=== PATIENT | male | born 2000 | race Caucasian/White ===

== ENCOUNTER 2024-07-03 06:47 | Day surgery (SDC) | payer OTHER, SELFPAY ==
[2024-06-29 12:43] VITALS: BMI 27.4
--- OUTSIDE RECORDS SUMMARY | 2024-07-02 14:42 | XMS_ITS | Clinical Summary ---
Author Organization [facility] Address [address] [place] [phone] Phone Care Team Providers Care Ski Topper Name Role Phone Unavailable Primary Care Provider Unavailabl e Allergies No known active allergies Medications No known medications Active Problems Problem Noted Date Diagnosed Date Attention-deficit hyperactiv ity disorder, predominantly hyperactive type 07/08/2009 Oppositional defiant disorder 07/08/2009 Immunizations Immunization Administration Dates Next Due DTP 1998,1998 DTaP 5 02/20/2002,07/27/1999,1998 HPV, Quadrivalent 10/04/2012,11/30/2011,09/30/19 12 Hep A, ped/adol 12/23/2015 Hep B, ped/adol 1998,1998,1998 Hib (PRP-T) 05/26/1999, 9,1998, 999 IPV 02/20/2002,1998,1998 Influenza, injectable, quadrivalent 12/23/2015 Influenza, intranasal, trivalent 10/21/2010,09/21 MMR 02/20/2002,01/22/1999 Meningococcal Conj (Menactra) MCV4P 10/09/2009 OPV 01/22/1999 Tdap 10/09/2009 Varicella 08/21/2008,01/22/1999 Family History Relation Name Status Comments Father Alive Father: Alive a nd well Half-Sister Alive Half sister (P) : ADD Mother Alive Mother: Obesity Other No family histo ry of CVA (Stroke), No family history of Heart disease, Family history of Diabetes mellitus, No family history of Migraines, Family history of Cancer, cervical, No family history of Seizure disorder, No family history of Thrombophilia Social History Tobacco Use Types Packs/Day Years Used Date Smoking Tobacco: Light Smoker Comments:Never smoker Sex and Gender Information Value Date Recorded Sex Assigned at Not on file Legal Sex Male 5:13 PM EDT Gender Identity Not on file Sexual Orientation Not on file Last Filed Vital Signs Vital Sign Reading Time Taken Comments Blood Pressure 113/72 02/27/2017 12:01 PM EST Pulse 83 07/06/2016 12:00 AM EDT Temperature 39.1 ??C (102.3 ??F) 02/27/2017 12:01 PM EST Respiratory Rate - - Oxygen Saturation - - Inhaled Oxygen Concentration - - Weight 68.3 kg (150 lb 9.6 oz) 02/27/2017 12:01 PM EST Height 178.4 cm (5' 10.25 ) 07/06/2016 12:00 AM EDT Body Mass Index 21.45 07/06/2016 12:00 AM EDT Plan of Treatment Health Maintenance Due Date Last Done Comments Hepatitis A Vaccines (2 of 2 - 2-dose series) 06/21/2016 12/23/2015 DTaP,Tdap,and Td Vaccines (7 - Td or Tdap) 10/10/2019 10/09/2009, 02/20/2002, 07/27/1999, Additional history exists Influenza Vaccines (#1) 2023 12/23/19 16, 10/21/2010, 10/09/2009 COVID-19 Vaccine ( season) 2023 Hepatitis B Vaccines Completed 1998, 1998, 1998 HIB Vaccines Completed 05/26/1999, 06/22, 1998, Additional history exists IPV Vaccines Completed 02/20/2002, 03/1998, 1998, Additional history exists MMR Vaccines Completed 02/20/2002, 01/22/1999 Varicella Vaccines Completed 08/21/2008, 01/22/1999 Meningococcal Vaccine Aged Out 10/09/2009 No kulwant woody eligible based on patient's age to complete this topic HPV Vaccines Completed 10/04/2012, 10/0 10/2011, 09/30/2011 Men B Vaccine Aged Out No longer elig ible based on patient's age to complete this topic Pneumococcal Vaccine Aged Out No long er eligible based on patient's age to complete this topic Insurance [facility]
--- OUTSIDE RECORDS SUMMARY | 2024-07-02 14:42 | XMS_ITS | Encounter Summary ---
Author Organization [facility] Address [address] [place] [address] Phone Care Team Providers Care Car Trimmer Name Role Phone Yamel Dan MD Primary Care Provider [phone] Encounter Details Date Type Department Care Team (Late st Contact Info) Description 06/20/2010 Documentation [facility] [place] [address] [place] [address] Family Medicine, Physician [address] [place] [address] Social History Tobacco Use Types Packs/Day Years Used Date Smoking Tobacco: Never Assessed Sex and Gender Information Value Date Recorded Sex Assigned at Not on file Legal Sex Male 5:13 PM EDT Gender Identity Not on file Sexual Orientation Not on file documented as of this encounter Plan of Treatment Not on file documented as of this encounter Visit Diagnoses Not on filedocumented in this encounter Care Teams Car Trimmer Relationship Specialty Start Date End Date Yamel Dan MD [address] [place] [address] [place] [id number] PCP - General 10/01/16 08/15/22 documented as of this encounter
--- OUTSIDE RECORDS SUMMARY | 2024-07-02 14:42 | XMS_ITS | Encounter Summary ---
Author Organization [facility] Address [address] [place] [address] Phone Care Team Providers Care District Court Justice Name Role Phone Yamel Dan MD Primary Care Provider [phone] Encounter Details Date Type Department Care Team (Late st Contact Info) Description 10/09/2009 Documentation [facility] [place] Medicine [address] [place] [address] Family Medicine, Physician [address] [place] [address] Social History Tobacco Use Types Packs/Day Years [...] on filedocumented in this encounter Care Teams District Court Justice Relationship Specialty Start Date End Date Yamel Dan MD [address] [place] [address] [place] [address] PCP - General 10/01/16 08/15/22 documented as of this encounter
--- OUTSIDE RECORDS SUMMARY | 2024-07-02 14:42 | XMS_ITS ---
Author Organization [facility] Address [address] [place] [phone] Care Team Providers Care Dragline Engineer Name Role Phone Jane Neely M.D. Primary Care Provider Marshall Etienne Jr Allergies No Known Allergies REASON FOR VISIT Patient presents today for ibs Medications Medication SIG (Take, Route, Fr equency, Duration) Notes Start Date End Date Status Wellbutrin XL 150 MG 1 tablet in the mor lindsay Orally Once a day Active Dicyclomine HCl 20 MG 1 tablet Orally 2- 4 times a day for 30 days 06/13/2024 Active Social History Tobacco Use: Social History Observation Description Date Details (start date - stop date) Never Smoker NA - NA Tobacco Control (Standard) Question Answer Notes Tobacco use: Nonsmoker AUDIT-C (Standard) Question Answer Notes Did you have a drink contain ing alcohol in the past year? Yes How often did you have a dri nk containing alcohol in the past year? 2 to 3 times a week (3 points) How many drinks did you have on a typical day when you were drinking in the past year? 3 or 4 drinks (1 point) How often did you have six o r more drinks on one occasion in the past year? Never (0 point) Points 4 Interpretation Positive Problems Problem Type SNOMED Code ICD Code Onset Dates Problem Status W/U Status Risk Notes Problem Abdominal pain (R10.9) Active confirmed Problem Diarrhea (23719600) Diarrhea (R19.7) Active confirmed Vital Signs Temperature 98.6 degrees Fahrenheit 06/14/19 25 Blood pressure systolic 001 mm Hg 06/14/19 25 Blood pressure diastolic 01 mm Hg 025 Height 71 in 06/13/2024 Weight 196.2 lbs 06/13/2024 BMI 27.36 kg/m2 06/13/2024 Encounters Encounter Location Date Provider Diagnosis [facility] [address] [place] [address] 06/13/2024 Marshallmike Maharaj Jr Abdominal pain R10.9 and Diarrhea R19.7 Assessments Encounter Date Diagnosis (ICD Code) Assessment Notes Treatment Notes Treatment Clinical Notes Section Notes 06/13/2024 Abdominal pain (ICD-10 - R10.9) We discussed his symptoms today. They certainly could be consistent with irritable bowel syndrome. We discussed that there are other things that could be causing this besides this and recommended colonoscopy to rule out inflammatory bowel disease and microscopic colitis. We discussed risks and benefits of the procedure today. He understands these and agrees to proceed. This will be scheduled at his convenience. His abdominal cramping symptoms may benefit from a trial of dicyclomine and this prescription was sent to his pharmacy. We discussed this medication today. 06/13/2024 Diarrhea (ICD-10 - R19.7) We discussed his symptoms today. They certainly could be consistent with irritable bowel syndrome. We discussed that there are other things that could be causing this besides this and recommended colonoscopy to rule out inflammatory bowel disease and microscopic colitis. We discussed risks and benefits of the procedure today. He understands these and agrees to proceed. This will be scheduled at his convenience. His abdominal cramping symptoms may benefit from a trial of dicyclomine and this prescription was sent to his pharmacy. We discussed this medication today. 06/13/2024 Other Colonoscopy material was printed We discussed his symptoms today. They certainly could be consistent with irritable bowel syndrome. We discussed that there are other things that could be causing this besides this and recommended colonoscopy to rule out inflammatory bowel disease and microscopic colitis. We discussed risks and benefits of the procedure today. He understands these and agrees to proceed. This will be scheduled at his convenience. His abdominal cramping symptoms may benefit from a trial of dicyclomine and this prescription was sent to his pharmacy. We discussed this medication today. Plan Of Treatment Medication Medication Name Sig Start Date Stop Date Notes Dicyclomine HCl 20 MG 1 tablet Orally 2- 4 times a day for 30 days 06/13/2024 Treatment Notes Assessment Notes Other Colonoscopy material was printed Future Test Test Name Order Date COLONOSCOPY 06/13/2024 Next Appt Details Follow Up: prn, Reason: Provider Name:Marshall Anderson edwin Faulkner, 07/03/2024 08:20:00 AM, [address] [place] [address] , [place], [place], [phone], Progress Notes * YOLIS LOPEZDOB: [birth year] (24 yo M)Acc No.[id number]:06/13/2024 Progress Notes Patient:?YOLIS LOPEZ Provider:?Marshall Maharaj MD :2000???Age:24 Y???Sex:Male Darrian e:06/13/2024 Address:[address] [place], [place] [phone] Pcp:Jane Neely M.D. Subjective: * Chief Complaints: * ???1. Patient presents today for ibs. * HPI: ???New symptom(s):? Yolis is a pleasant 24-year-old man seen today in consultation at the request of his primary care provider. He describes symptoms of abdominal pain stomach pain for years. Symptoms have been constant and intermittent. Food goes through him and he gets diarrhea. He has frequent bowel movements without blood. He notes no difference with stress or certain foods. Symptoms have not been progressive. He does have a family history of irritable bowel syndrome. Previous evaluation which is not available has included seeing 2 different capacity management specialist. The first in [place] advised him to use a FODMAP diet. He was then told that irritable bowel syndrome is not real . He was seen by a second GI provider in [place] and advised to schedule colonoscopy but this was not scheduled for unclear reasons. He did lose about 20 pounds when he was on the FODMAP diet. He has no upper GI symptoms. He does complain of significant abdominal cramping. * ROS:?General/Constitutional:?Change in appetite?denies.?Fatigue?denies.?ENT:?Patient denies?difficulty swallowing.?Respiratory:?Patient denies?shortness of breath.?Cardiovascular:?Patient denies?chest pain.?Gastrointestinal:?Comments?See HPI for details.?Genitourinary:?Difficulty urinating?denies.?Incontinence?denies.?Musculoskeletal:?Patient denies?muscle aches.?Skin:?Patient denies?pruritis.?Neurologic:?Patient denies?low back pain.?Psychiatric:?Patient denies?mental or physical abuse.? * Medical History:?Anxiety/dep ression, Irritable bowel syndrome with diarrhea predominance. * Family History:?Father: [place]?Mother: alive.? No family history of colon cancer or liver cancer. * Social History:?Tobacco Use:?Tobacco Control (Standard)?Tobacco use:?Nonsmoker.?Miscellaneous:?Marital status: single. Occupation: works full-time teacher. ???Drug/Alcohol:?AUDIT-C (Standard)?Did you have a drink containing alcohol in the past year??Yes,?How often did you have a drink containing alcohol in the past year??2 to 3 times a week (3 points),?How many drinks did you have on a typical day when you were drinking in the past year??3 or 4 drinks (1 point),?How often did you have six or more drinks on one occasion in the past year??Never (0 point),?Points?4,?Interpretation?Positive.? * Medications:?Taking Wellbutr in XL 150 MG Tablet Extended Release 24 Hour 1 tablet in the morning Orally Once a day , Medication List reviewed and reconciled with the patient * Allergies:?N.K.D.A. Objective: * Vitals:?Wt:196.2lbs, Ht: 71 in, BMI:27.36Index, BP:001/01mm Hg, Temp:98.6, Ht- cm: 180.34, Wt-k. * Examination: ???General Examination: ?GENERAL APPEARANCE:?in no acute distress.?HEAD:?normocephalic.?EYES:?sclera non-icteric.?ORAL CAVITY:?mucosa moist.?NECK/THYROID:?no lymphadenopathy.?SKIN:?anicteric.?HEART:?S1, S2 normal, no murmurs.?LUNGS:?clear to auscultation bilaterally.?CHEST:?normal shape and expansion.?ABDOMEN:?soft, nontender, nondistended, bowel sounds present, no organomegaly .?EXTREMITIES:?no clubbing, cyanosis, or edema.?PSYCH:?cognitive function intact.? Assessment: * Assessment: 1.?Abdominal pain - R10.9 (P rimary)???2.?Diarrhea - R19.7??? We discussed his symptoms to day. They certainly could be consistent with irritable bowel syndrome. We discussed that there are other things that could be causing this besides this and recommended colonoscopy to rule out inflammatory bowel disease and microscopic colitis. We discussed risks and benefits of the procedure today. He understands these and agrees to proceed. This will be scheduled at his convenience. His abdominal cramping symptoms may benefit from a trial of dicyclomine and this prescription was sent to his pharmacy. We discussed this medication today. Plan: * Treatment: 2.?Diarrhea?Procedure: COLONOSCOPY (Ordered for 06/13/2024)* sched for 07/03/24 at 9:10 am macmiralax 3.?Others? Notes: Colonoscopy material was printed?? * Procedure Codes:?G9902 Pt sc rn tbco and id as user * Preventive Medicine:? ??Counseling:?Care goal follow-up plan:?Above Normal BMI Follow-up?Dietary management education, guidance, and counseling,?BMI management provided?Yes.? * Follow Up:?prn * * Sign off status: Completed true * Provider:?Marshall Maharaj MD Date:?0 06/13/2024 Generated for Radha ho/Lidia/Ederitting on:?07/02/2024 02:42 PM EDT History and Physical Notes * HPI (History of Present Illness) Category Sub-Category Detail Notes Category Not es New symptom(s) Yolis is a pleasant 24-year-old man seen today in consultation at the request of his primary care provider. He describes symptoms of abdominal pain stomach pain for years. Symptoms have been constant and intermittent. Food goes through him and he gets diarrhea. He has frequent bowel movements without blood. He notes no difference with stress or certain foods. Symptoms have not been progressive. He does have a family history of irritable bowel syndrome. Previous evaluation which is not available has included seeing 2 different capacity management specialist. The first in [place] advised him to use a FODMAP diet. He was then told that irritable bowel syndrome is not real . He was seen by a second GI provider in [place] and advised to schedule colonoscopy but this was not scheduled for unclear reasons. He did lose about 20 pounds when he was on the FODMAP diet. He has no upper GI symptoms. He does complain of significant abdominal cramping Examination Category Sub-Category Detail Notes Category Not es General Examination GENERAL APPEARANCE: in no acute di stress HEAD: normocephalic EYES: sclera non-icteric NECK/THYROID: no lymphadenopathy HEART: S1, S2 normal, no mu rmurs CHEST: normal shape and exp ansion LUNGS: clear to auscultatio n bilaterally ABDOMEN: soft, nontender, non distended, bowel sounds present, no organomegaly SKIN: anicteric EXTREMITIES: no clubbing, cyanosi s, or edema PSYCH: cognitive function i ntact ORAL CAVITY: mucosa moist
--- OUTSIDE RECORDS SUMMARY | 2024-07-02 14:42 | XMS_ITS | Encounter Summary ---
Author Organization [facility] Address [address] [place] [address] Phone Care Team Providers Care Hotel Front Desk Clerk Name Role Phone Yamel Dan MD Primary Care Provider [phone] Encounter Details Date Type Department Care Team (Late st Contact Info) Description 10/09/2009 Documentation [facility] [place] [address] [place] [address] Family Medicine, Physician [address] [place] [address] Social History Tobacco Use Types Packs/Day Years [...] on filedocumented in this encounter Care Teams Hotel Front Desk Clerk Relationship Specialty Start Date End Date Yamel Dan MD [address] [place] [address] [place] [address] PCP - General 10/01/16 08/15/22 documented as of this encounter
--- OUTSIDE RECORDS SUMMARY | 2024-07-02 14:42 | XMS_ITS | Patient Health Record ---
Author Organization [facility] Address [address] [place] [phone] Care Team Providers Care Secretary Of Police Name Role Phone Jane Neely M.D. Primary Care Provider Qamar Maharaj Jr Marshall Gene Allergies No Known Allergies Reason For Referral No Information Medications Medication SIG (Take, Route, Fr equency, Duration) Notes Start Date End Date Status Wellbutrin XL 150 MG 1 tablet in the mor lindsay Orally Once a day Active Dicyclomine HCl 20 MG 1 tablet Orally 2- 4 times a day for 30 days 06/13/2024 Active Immunizations Vaccine Route Administration Date Status Comme nts Influenza Unknown 11/08/2023 Administered Social History Tobacco Use: Social History Observation [...] W/U Status Risk Notes Problem Abdominal pain (93864130) Abdominal pain (R10.9) Active confirmed Problem Diarrhea (32914640) Diarrhea (R19.7) Active confirmed Vital Signs Temperature 98.6 degrees Fahrenheit 06/13/2024 Blood pressure diastolic 01 mm Hg 06/13/2024 Height 71 in 06/13/2024 Blood pressure systolic 001 mm Hg 06/13/2024 Weight 196.2 lbs 06/13/2024 BMI 27.36 kg/m2 06/13/2024 Encounters Encounter Location Date Provider Diagnosis [facility] [address] [place] [address] 06/13/2024 Marshall Maharaj Jr Abdominal pain R10.9 and Diarrhea R19.7 [facility] [address] [place] [address] 06/13/2024 Marshall Maharaj Jr Assessments Encounter Date Diagnosis (ICD Code) Assessment [...] discussed this medication today. Plan Of Treatment Future Test Test Name Order Date COLONOSCOPY 06/13/2024 Next Appt Details Provider Name:Marshall Salomón pineda Jr, 07/03/2024 08:20:00 AM, [address] [place] [address] , [place], [place], [id number], Insurance Providers Payer Name Payer Address Payer Phone Subscriber Number Group Number Insured Name Patient Relationship to Insured Coverage Start Date Coverage End Date [facility] [address] [address] [place], [place] [id number] YOLIS LOPEZ Self - patient is the insured Medical (General) History Medical History History ICD Code Anxiety/depression Irritable bowel syndrome with diarrhea p redominance
--- OUTSIDE RECORDS SUMMARY | 2024-07-02 14:42 | XMS_ITS ---
Author Organization [facility] Address [address] [place] [phone] Care Team Providers Care Residential Energy Auditor Name Role Phone Jane Neely M.D. Primary Care Provider Unava ilmildred Maharaj Jr, [place] [phone] REASON FOR VISIT r/s Encounters Encounter Location Date Provider Diagnosis [facility] [address] [place] [phone] 06/13/2024 Marshall Maharaj Jr Plan Of Treatment Next Appt Details Provider Name:Marshall pineda Jr, 07/03/2024 08:20:00 AM, [address] [place] [address] , [place], [place], [phone], Progress Notes * YOLIS LOPEZDOB: [birth year] (24 yo M)Acc No.[id number]:06/13/2024 Patient:?YOLIS LOPEZ :2000???Age:24 Y???Sex:Male Address:[address] [place] [phone] * true * Date:? Generated for Printi ng/Fafaustinog/eTransmitting on:?07/02/2024 02:41 PM EDT
--- OUTSIDE RECORDS SUMMARY | 2024-07-02 14:42 | XMS_ITS | Encounter Summary ---
Author Organization [facility] Address [address] [place] [address] Phone Care Team Providers Care Head Up Operator Name Role Phone Yamel Dan MD Primary Care Provider [phone] Encounter Details Date Type Department Care Team (Late st Contact Info) Description 10/07/2016 Conversion Encounter [facility] [place] [address] [place] [address] Social History Tobacco Use Types Packs/Day Years Used Date Smoking Tobacco: Never Comments:Never smoker Sex and Gender Information Value Date Recorded Sex Assigned at Not on file Legal Sex Male 5:13 PM EDT Gender Identity Not on file Sexual Orientation Not on file documented as of this encounter Plan of Treatment Not on file documented as of this encounter Visit Diagnoses Not on filedocumented in this encounter Care Teams Head Up Operator Relationship Specialty Start Date End Date Yamel Dan MD [address] [place] [id number] PCP - General 10/01/16 08/15/22 documented as of this encounter
[2024-07-03 07:28] VITALS: BMI 26.7
[2024-07-03 07:41] VITALS: BP 138/92; PULSE 81; RESP 16; TEMP 36.7; O2SAT 100
[2024-07-03] MEDS: Lactated Ringers 1,000 ML 80 ML IVCONT (07:55)
--- NOTE | 2024-07-03 08:25 | MHC.SHP ---
Pre-Procedural Eval Section A - 24 Hr Update-Section A only Date of Service: 07/03/24 Section B - Complete if H&P > 30 days Chief Complaint: Unspecified abdominal pain Details of Present Illness: see H&P no changes Relevant Family History (Specify if Yes): No Relevant Social History: None Present Medications: see Short Stay Collaborative assessment Medical History: No relevant PMH History of Previous Operations: No relevant previous surgery Allergies: Allergies Allergy/AdvReac Type Severity Reaction Status Date / Time No Known Allergies Allergy Unverified 11/08/19 16:40 Review of Systems Sugical H&P ROS: Negative: Constitution, Cardiovascular, Respiratory, Neurological, Psychiatric, Hem-Onc, Allergic/Immunologic, Gastrointestinal, Genitourinary, Musculoskeletal, Integumentary, Endocrine and Eyes/Ears/Nose/Throat Exam Surgical H&P Exam: Normal: HEENT, Normal: Heart, Normal: Lungs, Normal: Extremities, Normal: Abdomen, Normal: Skin and Normal: Neurological Plan Diagnosis/Plan: Unchanged I have reviewed the history and physical and performed a pertinent physical examination on my patient. No changes have occurred unless specified. Time Spent With Patient Time: Total time managing care of this patient today ____ minutes.
[2024-07-03 09:10] VITALS: BP 106/67; PULSE 76; RESP 16; TEMP 36.4; O2SAT 100
[2024-07-03 09:25] VITALS: BP 108/74; PULSE 72; RESP 16; TEMP 36.4; O2SAT 100
--- NOTE | 2024-07-03 09:25 | OP_ITS ---
DATE OF SERVICE: 07/03/2024 SURGEON: Marshall Maharaj MD INDICATIONS: Abdominal pain and diarrhea. PREOPERATIVE DIAGNOSIS: POSTOPERATIVE DIAGNOSIS: PROCEDURE PERFORMED: Colonoscopy to the terminal ilium with biopsy. ESTIMATED BLOOD LOSS: COMPLICATIONS: ANESTHESIA: ASSISTANTS: SPECIMENS: MEDICATIONS: Monitored anesthesia care. DESCRIPTION OF PROCEDURE: A history and physical was performed. The risks and benefits of the procedure were explained to the patient, and informed consent was obtained. The patient was placed in the left lateral decubitus position. A digital rectal exam was performed and was found to be normal. The Olympus pediatric video colonoscope was introduced into the rectum and advanced to the cecum. The cecum was identified by transillumination, palpation, and identification of the ileocecal valve. Examination was performed. The scope was removed. He tolerated the procedure well and was returned to the recovery area in stable condition. FINDINGS: The terminal ileum was normal. This was biopsied. The visualized colonic mucosa was normal. Random sigmoid biopsies were obtained. There was no evidence of masses, ulcers, or polyps. There was no evidence of colitis. Retroflexed examination showed some small internal hemorrhoids. IMPRESSION: Normal colonoscopy. RECOMMENDATION: Follow up the biopsy results. MD KOBI Guadalupe/ALEJA / [id number]
--- NOTE | 2024-07-05 11:30 | HO.ANESPROP2 ---
HPI - Anesthesia Eval Consult details Narrative: 24 M w/ IBS/abdominal pain PMFSH Past Medical History Medical History Hernia IBS (irritable bowel syndrome) Anxiety Depression Family History Family history of problems with anesthesia: No Surgical History Surgical History Surgical history unknown Social History Social History Patient Tobacco Use Status: Never used Tobacco Use of substances other than those prescribed or required for medical reasons: Yes Are you DNR?: No Advance Directives: No Advance Directives Information Provided: Yes Poor oral hygiene: No Meds Allergies Allergy/AdvReac Type Severity Reaction Status Date / Time No Known Allergies Allergy Unverified 11/08/19 16:40 Home Medications ?Medication ?Instructions ?Recorded ?Confirmed ?Last Taken ?Type bupropion HCl 150 mg 24 hr tablet, 150 mg PO QAM 06/29/24 06/29/24 Unknown History extended release (Wellbutrin XL) Exam Height,Weight and Vital Signs: Height 5 ft 11 in Weight 191 lb 9.307 oz Last Vital Signs Temp 97.6 F 07/03/24 09:25 Pulse 72 07/03/24 09:25 Resp 16 07/03/24 09:25 BP 108/74 07/03/24 09:25 Pulse Ox 100 07/03/24 09:25 O2 Del Method Room Air 07/03/24 09:25 Airway Mallampati Class: II TM Dist: >3cm Neck ROM: Full Loose/Missing/Broken Teeth: No Other: Multiple piercings Assessment and Plan Assessment Anesthesia Assessment: Anesthesia Plan Discussed and Chart Reviewed Final Anesthetic Review Family History of Problems with Anesthesia: No NPO: Yes ASA Class: II Final Preanesthetic Review: No Changes in Pt Med Stat, Meds/Allgs Chart Reviewed, Consent Obtained/Reviewed and Anes Risks/Benef Reviewed Patient Risk: Low Procedure Risk: Low Anesthetic Plan Anesthetic Plan: MAC: Disposition: Standard PACU
== END 2024-07-03 09:54 | disposition home or self-care (01) ==
PROVIDERS: PCP Family Medicine; Visit Provider Internal Medicine Gastroenterology
PROC: 0DJD8ZZ Inspection of Lower Intestinal Tract, Via Natural or Artificial Opening Endoscopic (ICD-10-PCS; CPT 45378; principal; 2024-07-03 08:20)
DX: R10.9 Unspecified abdominal pain (principal); K58.0 Irritable bowel syndrome with diarrhea; K64.8 Other hemorrhoids; F41.9 Anxiety disorder, unspecified; Z79.899 Other long term (current) drug therapy
CPT/HCPCS: 45380; 88305; J2003; J2704; J3010